=== PATIENT | female | born 1990 | race Caucasian/White ===

== ENCOUNTER 2017-10-18 11:42 | Emergency (ER) | payer MEDICAID ==
[~2017-10-18] VITALS: Ht 170.2 cm; Wt 61.0 kg
[2017-10-18 11:45] VITALS: BP 143/96
[2017-10-18] MEDS ORDERED: TEMA7.5C PO (12:13)
[2017-10-18] MEDS ORDERED: GABA300C10 PO (12:13)
[2017-10-18] MEDS ORDERED: OMEP10CA4 PO (12:14)
== END 2017-10-18 12:55 | disposition home or self-care (01) ==
LOC: ED 12:15
DX: H60.12 Cellulitis of left external ear (principal); L02.412 Cutaneous abscess of left axilla
CPT/HCPCS: 99283

== ENCOUNTER 2017-12-21 11:18 | Emergency (ER) | payer MEDICAID, OTHER ==
[~2017-12-21] VITALS: Ht 170.2 cm; Wt 62.2 kg
[~2017-12-21 11:18] MED LIST: GABA300C10 PO; OMEP10CA4 PO; TEMA7.5C PO
[2017-12-21 11:31] VITALS: BP 147/92
== END 2017-12-21 11:53 | disposition home or self-care (01) ==
LOC: ED 11:45
DX: L02.412 Cutaneous abscess of left axilla (principal); F17.200 Nicotine dependence, unspecified, uncomplicated
CPT/HCPCS: 99281

== ENCOUNTER 2018-04-06 20:10 | Emergency (ER) | payer MEDICAID ==
[~2018-04-06] VITALS: Ht 170.2 cm; Wt 62.3 kg
[2018-04-06 20:41] LABS: BASOPHILS # (AUTO) 0.15 x10^3/uL (0-0.1); BASOPHILS % (AUTO) 1 % (0-1); EOSINOPHILS # (AUTO) 0.08 x10^3/uL (0-0.4); EOSINOPHILS % (AUTO) 1 % (1-7); LYMPHOCYTES # (AUTO) 3.75 x10^3/uL (1-3.4); LYMPHOCYTES % (AUTO) 33 % (22-44); MD NO; MEAN CORPUSCULAR HEMOGLOBIN 30.6 pg (27.0-34.8); MEAN CORPUSCULAR HGB CONC 33.7 g/dL (32.4-35.8); MEAN CORPUSCULAR VOLUME 90.8 fL (80-100); MEAN PLATELET VOLUME 7.8 fL (7.4-10.4); MONOCYTES # (AUTO) 1.03 x10^3/uL (0.2-0.8); MONOCYTES % (AUTO) 9 % (2-9); NEUTROPHILS # (AUTO) 6.38 x10^3/uL (1.8-6.8); NEUTROPHILS % (AUTO) 56 % (42-75); PLATELET COUNT 368 x10^3/uL (130-400); RED BLOOD COUNT 5.33 x10^6/uL (3.82-5.3); RED CELL DISTRIBUTION WIDTH 13.6 % (9.6-15.2)
[2018-04-06 20:51] LABS: ALBUMIN 4.2 g/dL (3.4-5.0); ANION GAP 7 mmol/L (5-15); CHLORIDE 105 mmol/L (98-107); CREATININE 1.08 mg/dL (0.55-1.02)
[2018-04-06 21:11] LABS: MICROSCOPIC INDICATED
[2018-04-06 21:12] LABS: CULTURE INDICATED? YES; HCG UR SG > 1.030 (1.003-1.030)
[2018-04-07] VITALS: BP 131/83
== END 2018-04-07 00:03 | disposition home or self-care (01) ==
LOC: ED 22:49
DX: R30.0 Dysuria (principal); R31.9 Hematuria, unspecified
CPT/HCPCS: 36415; 74176; 80048; 81001; 81025; 82040; 85025; 87086; 99285